=== PATIENT | male | born 1975 | race Caucasian/White ===

== ENCOUNTER 2017-01-12 12:55 | Emergency (ER) | payer SELFPAY ==
[2017-01-12 13:13] VITALS: BP 123/93
--- NOTE | 2017-01-12 13:43 | UC ---
General HPI - HPI Summary HPI Summary: He is from [place] and is in a suboxone clinic there. 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 He has been without suboxone for three days and is having withdrawal symptoms. He has tried the local clinics which cannot get him in. - History of Current Complaint Chief Complaint: UCMedRefill Stated Complaint: FEVER NAUSEA Time Seen by Provider: 01/12/17 13:26 Hx Obtained From: Patient Onset/Duration: Gradual Onset Timing: Constant Onset Severity: Mild Current Severity: Moderate Associated Signs & Symptoms: Positive: Nausea. Negative: Abdominal Pain, Confusion, Cough, Chest Pain, Decreased Responsiveness, Dizziness, Diarrhea - Allergy/Home Medications Allergies/Adverse Reactions: Allergies Allergy/AdvReac Type Severity Reaction Status Date / Time No Known Allergies Allergy Verified 01/12/17 13:13 Home Medications: Home Medications Buprenorphine/Naloxone SL TAB* [Suboxone 8-2 mg SL TAB*] 0.5 tab.sl SL BID 01/12 [History Confirmed 01/12/17] PMH/Surg Hx/FS Hx/Imm Hx Previously Healthy: No - prior drug addiction. - Surgical History Surgical History: Yes Surgery Procedure, Year, and Place: RIGHT KNEE - Social History Alcohol Use: None Substance Use Type: Prescribed Smoking Status (MU): Heavy Every Day Tobacco Smoker Amount Used/How Often: 1/2 PPD Review of Systems All Other Systems Reviewed And Are Negative: Yes Physical Exam Triage Information Reviewed: Yes Appearance: Well-Appearing, No Pain Distress, Well-Nourished Vital Signs: Initial Vital Signs Temp 98.5 F 01/12/17 13:09 Pulse 106 01/12/17 13:09 Resp 16 01/12/17 13:09 BP 123/93 01/12/17 13:09 Pulse Ox 100 01/12/17 13:09 Vital Signs Reviewed: Yes ENT Exam: Normal Neck exam: Normal Respiratory Exam: Normal Cardiovascular Exam: Normal Abdominal Exam: Normal Musculoskeletal Exam: Normal Neurological Exam: Normal Psychological Exam: Normal Psychological: Positive: Other: - good eye contact. logical and pleasant. no psychomotor agitation. He denies SI and HI. Skin Exam: Normal Course/Dx - Course Course Of Treatment: we attempted to get a hold of Tiffanie Mai but could not. we have talked with the local suboxone clinic and asked for their advice as well. dipak [facility] with [facility] they state they cannot get him today. - Differential Dx - Multi-Symptom Provider Diagnoses: suboxone withdrawal. Discharge - Discharge Plan Condition: Fair Disposition: HOME Patient Education Materials: Opioid Withdrawal (ED) Additional Instructions: Please continue to attempt to try to get into a local clinic.
== END 2017-01-12 14:19 | disposition home or self-care (01) ==
LOC: UCCORT 12:55
DX: F11.23 Opioid dependence with withdrawal (principal); R11.0 Nausea; F17.210 Nicotine dependence, cigarettes, uncomplicated
CPT/HCPCS: 99201; G0463

== ENCOUNTER 2017-01-12 15:30 | Emergency (ER) | payer SELFPAY ==
[2017-01-12] MEDS ORDERED: Buprenorphine/Naloxone 8-2 MG SL TAB* 1 TAB PO SCH (17:45)
[2017-01-12 18:41] VITALS: BP 135/92
--- NOTE | 2017-01-12 23:35 | ED ---
Lisette Helton Alfonso, scribed for Santiago Jauregui MD on 01/12/17 at 1833 . Complex/Multi-Sys Presentation - HPI Summary HPI Summary: This patient is a 41 year old male presenting to [facility] c/o finishing his Suboxone prescription three days ago. He is from [place] and working in town for 5 more weeks. He cannot get a prescription refill in [facility] because local clinics have been unable to see him on short notice. He reports withdrawal symptoms that including physically needing it and a subjective fever. Symptoms aggravated and alleviated by nothing. - History Of Current Complaint Chief Complaint: EDPrescriptionNeeded Time Seen by Provider: 01/12/17 17:36 Hx Obtained From: Patient Onset/Duration: Sudden Onset, Lasting Days - 3 days, Still Present Timing: Constant Severity Currently: Moderate Severity Initially: Moderate Aggravating Factor(s): Nothing Alleviating Factor(s): Nothing Associated Signs And Symptoms: Positive: Fever, Other - Physical withdrawal symptoms - Allergies/Home Medications Allergies/Adverse Reactions: Allergies Allergy/AdvReac Type Severity Reaction Status Date / Time No Known Allergies Allergy Verified 01/12/17 15:56 PMH/Surg Hx/FS Hx/Imm Hx Sensory History: Denies: Hx Deafness Opthamlomology History: Denies: Hx Legally Blind - Surgical History Surgery Procedure, Year, and Place: RIGHT KNEE Infectious Disease History: No Infectious Disease History: Denies: Traveled Outside the in Last 30 Days - Social History Alcohol Use: None Substance Use Type: Reports: Prescribed Smoking Status (MU): Heavy Every Day Tobacco Smoker Amount Used/How Often: 1/2 PPD Review of Systems Positive: Fever Positive: Other - Positive "physically needing" Suboxone All Other Systems Reviewed And Are Negative: Yes Physical Exam Triage Information Reviewed: Yes Vital Signs On Initial Exam: Initial Vitals Temp Pulse Resp BP Pulse Ox 97.6 F 91 16 122/87 100 01/12/17 15:56 01/12/17 15:56 01/12/17 15:56 01/12/17 15:56 01/12/17 15:56 Vital Signs Reviewed: Yes Appearance: Positive: Well-Appearing, No Pain Distress Skin: Positive: Warm, Skin Color Reflects Adequate Perfusion, Dry Head/Face: Positive: Normal Head/Face Inspection Eyes: Positive: Normal ENT: Positive: Normal ENT inspection Neck: Positive: Supple, Nontender Respiratory/Lung Sounds: Positive: Clear to Auscultation, Breath Sounds Present Cardiovascular: Positive: RRR Abdomen Description: Positive: Nontender, Soft Bowel Sounds: Positive: Present Musculoskeletal: Positive: Normal Neurological: Positive: Normal, Sensory/Motor Intact, Alert, Oriented to Person Place, Time, CN Intact II-III Psychiatric: Positive: Affect/Mood Appropriate Diagnostics - Vital Signs Vital Signs Temp Pulse Resp BP Pulse Ox 01/12/17 16:45 98.7 F 85 16 121/89 100 01/12/17 15:56 97.6 F 91 16 122/87 100 - Laboratory Lab Statement: Any lab studies that have been ordered have been reviewed, and results considered in the medical decision making process. Complex Multi-Symp Course/Dx Course Of Treatment: Mr. Khan is in a bind and will need to get suboxone prescribed for him. I gave him a dose for pain and referred him to the pain clinic. - Diagnoses Provider Diagnoses: Chronic pain Discharge - Discharge Plan Condition: Stable Disposition: HOME Patient Education Materials: Chronic Pain (ED) Referrals: [facility] [Outside] - 3 Days Additional Instructions: Follow up with pain clinic. [facility] [address] , [place] [address] The documentation as recorded by the Lisette escobar Alfonso accurately reflects the service I personally performed and the decisions made by me, Santiago Jauregui MD.
== END 2017-01-12 18:35 | disposition home or self-care (01) ==
LOC: ED 15:30
DX: G89.29 Other chronic pain (principal); R50.9 Fever, unspecified; F17.210 Nicotine dependence, cigarettes, uncomplicated
CPT/HCPCS: 99281; A9270-GY